=== PATIENT | male | born 1960 | race African-American/Black ===

== ENCOUNTER 2019-02-04 12:32 | Inpatient (IN) | payer MEDICAID ==
[2019-02-04] VITALS (10 sets, daily range): BP systolic 131–176; BP diastolic 73–135
[~2019-02-04] VITALS: Ht 172.7 cm; Wt 78.0 kg
[~2019-02-04 12:32] MED LIST: FUROSEMIDE20 M1 ORAL; GLIPIZIDE10 MG PO; METOPROLOL SUCC25 MG ORAL
[2019-02-04] MEDS ORDERED: Albuterol ud Inhalation HHN ONE ×2 (12:45→14:00)
[2019-02-04] MEDS ORDERED: Ipratropium 0.02% Inh Soln 2.5ml UD HHN ONE (12:45)
[2019-02-04] MEDS ORDERED: Solu-MEDROL 125mg Inj IVP ONE (12:45)
[2019-02-04 13:18] LABS: BASOPHILS % (AUTO) 1.3 % (0.0-2.0); EOSINOPHILS % (AUTO) 1.3 % (0.0-3.0); HEMATOCRIT 36.2 % (42.0-52.0); HEMOGLOBIN 11.7 G/DL (14.2-18.0); LYMPHOCYTES % (AUTO) 28.8 % (20.0-45.0); MEAN CORPUSCULAR VOLUME 87 FL (80-99); MONOCYTES % (AUTO) 7.8 % (1.0-10.0); NEUTROPHILS % (AUTO) 60.9 % (45.0-75.0); PLATELET COUNT 179 K/UL (150-450); RED BLOOD COUNT 4.18 M/UL (4.70-6.10); RED CELL DISTRIBUTION WIDTH 15.4 % (11.6-14.8)
[2019-02-04 13:30] LABS: INR 1.2 (0.9-1.1)
[2019-02-04 13:34] LABS: ANION GAP 11 mmol/L (5-15); BLOOD UREA NITROGEN 7 mg/dL (7-18); CALCIUM 8.7 MG/DL (8.5-10.1); CARBON DIOXIDE 24 MMOL/L (21-32); CHLORIDE 104 MMOL/L (98-107); CREATININE 0.9 MG/DL (0.55-1.30); POTASSIUM 4.6 MMOL/L (3.5-5.1); SODIUM 139 MMOL/L (136-145)
[2019-02-04 13:41] LABS: APPEARANCE,URINE CLEAR; BILIRUBIN, URINE NEGATIVE (NEGATIVE); COLOR,URINE PALE YELLOW; GLUCOSE, URINE (UA) 3+ (NEGATIVE); KETONES,URINE NEGATIVE (NEGATIVE); LEUKOCYTE ESTERASE ,URINE NEGATIVE (NEGATIVE); NITRITE,URINE NEGATIVE (NEGATIVE); PH,URINE 7 (4.5-8.0); PROTEIN,URINE 2+ (NEGATIVE); UROBILINOGEN,URINE NORMAL MG/DL (0.0-1.0)
--- NOTE | 2019-02-04 13:44 | Emergency Room Report ---
History of Present Illness General Chief Complaint: Dyspnea/Respdistress Source: Patient, EMS Present Illness HPI Patient presents with increasing shortness of breath for at least 3 days. He's had a mildly productive cough with some yellow phlegm. Denies any fevers or chills. He was transported by EMS. They performed a 12-lead EKG. They thought there is ST elevation in had a reviewed by Paul felt it was more related to LVH. The patient denies chest pain. Patient was hypoxemic in the field. Oxygen was begun. No breathing treatments were administered. He was quite anxious with the shortness of breath today. He was improved somewhat with transport on oxygen. He does not use home oxygen. Administered 0.8 mg of nitroglycerin with some improvement in the field. The patient has a history of COPD. He stopped smoking within the last month. He is never been intubated. The patient denies a history of congestive heart failure. There is no leg edema or calf tenderness. He denies prior blood clots. No palpitations, nausea, vomiting, diarrhea, dysuria, abdominal pain, depression , visual changes, headache. Allergies: Coded Allergies: No Known Allergies (Unverified , 02/04/19) Patient History Past Medical History: see triage record Social History: Denies: smoking - Stopped smoking last month Social History Narrative lives at home Reviewed Nursing Documentation: PMH: Agreed; PSxH: Agreed Nursing Documentation-PMH Hx Hypertension: Yes Hx Diabetes: Yes Review of Systems All Other Systems: negative except mentioned in HPI Physical Exam Vital Signs Date Time Temp Pulse Resp B/P (MAP) Pulse Ox O2 Delivery O2 Flow Rate FiO2 02/04/19 12:25 98.8 101 20 160/100 94 Nasal Cannula 4.0 02/04/19 13:10 32 Sp02 EP Interpretation: reviewed, abnormal - Interpreted as low by me General Appearance: well appearing, mild distress Head: normocephalic Eyes: bilateral eye normal inspection ENT: moist mucus membranes Neck: supple Respiratory: no retraction, no accessory muscle use, respiratory distress - Mild, wheezing, expiration Cardiovascular #1: regular rate, rhythm, no edema Cardiovascular #2: 2+ radial (R) Gastrointestinal: normal inspection, non tender, soft, decreased bowel sounds Musculoskeletal: back normal, gait/station normal, normal range of motion Neurologic: alert, oriented x3, grossly normal Psychiatric: anxious Skin: normal inspection, warm/dry Procedures Critical Care Time Critical Care Time Total Critical Care Time: 450 min bedside evaluation and treatment excludes procedures (EKG). Reason for critical care: Dyspnea, hypoxia, hypertension, congestive heart failure, bronchospasm, elevated troponin Possible complications: hypotension, hypertension, RI, shock, arrhythmias, metabolic acidosis, end organ damage, respiratory failure. Interventions: Solu-Medrol, breathing treatments, aspirin, metoprolol, nitroglycerin sublingually administered by me, Lasix and repeated evaluations Course: Patient with history of COPD resents with hypoxia and hypertension. Initial breathing treatments with help. Patient worsened after aggressive treatment. He was hypertensive and due to congestive failure on x-ray nitrates , Lasix administered. Positive troponin treated with aspirin, metoprolol. As the patient worsened a repeat EKG was performed. No evidence of STEMI. Unable to perform CT angiogram and the decision was made to give the patient Lovenox. Because the patient had worsened with aggressive treatment and because CT angiogram was unable to be obtained the patient was admitted to intensive care unit. He was improved. Consultations: nursing staff, EMS, admitting MD Performed by: Dr. Kraft Tolerated well condition = critical Medical Decision Making PA Attestation Resp distress @ 13:50. Nitrates and albuterol. Diagnostic Impression: Primary Impression: COPD exacerbation Additional Impressions: Hypoxia Elevated troponin CHF (congestive heart failure) Qualified Codes: I50.41 - Acute combined systolic (congestive) and diastolic ( congestive) heart failure HTN (hypertension) Qualified Codes: I10 - Essential (primary) hypertension ER Course Patient presents with dyspnea with history of COPD with some improvement with oxygen and nitroglycerin administration in the field. Differential includes acute myocardial infarction, COPD exacerbation, congestive heart failure, hypertensive urgency, pulmonary edema, pulmonary embolus amongst others. Presentation is fairly complex. Evaluation with EKG, chest x-ray and labs. Treatment with Solu-Medrol, breathing treatments and IV hydration. EKG without injury but left ventricular hypertrophy. Chest x-ray increased pruitt bilaterally suggesting congestive failure. Labs with normal white count. Elevated troponin called. BNP elevated. Patient had a improvement initially. IV hydration was stopped. 13:50 increased dyspnes. Nitrates and albuterol. Inc O2. Also ordered Lasix. Consideration for pulmonary embolus is entertained. As unable to do CTA, start Lovenox to cover for possible PE. (Will also treat NSTEMI.) Consider V/Q if CTA unavailable. Nitrates helped. EKG #2 - NSR LVH, not STEMI, normal intervals. Still needs monitoring. As was unstable, will increase level of care to ICU. Patient diuresing and somewhat improved. Patient admitted ICU . Laboratory Tests Test 02/04/19 13:09 White Blood Count 5.0 K/UL (4.8-10.8) Red Blood Count 4.18 M/UL (4.70-6.10) L Hemoglobin 11.7 G/DL (14.2-18.0) L Hematocrit 36.2 % (42.0-52.0) L Mean Corpuscular Volume 87 FL (80-99) Mean Corpuscular Hemoglobin 27.9 PG (27.0-31.0) Mean Corpuscular Hemoglobin Concent 32.3 G/DL (32.0-36.0) Red Cell Distribution Width 15.4 % (11.6-14.8) H Platelet Count 179 K/UL (150-450) Mean Platelet Volume 7.4 FL (6.5-10.1) Neutrophils (%) (Auto) 60.9 % (45.0-75.0) Lymphocytes (%) (Auto) 28.8 % (20.0-45.0) Monocytes (%) (Auto) 7.8 % (1.0-10.0) Eosinophils (%) (Auto) 1.3 % (0.0-3.0) Basophils (%) (Auto) 1.3 % (0.0-2.0) Prothrombin Time 12.1 SEC (9.30-11.50) H Prothrombin Time INR 1.2 (0.9-1.1) H PTT 26 SEC (23-33) Urine Color Pale yellow Urine Appearance Clear Urine pH 7 (4.5-8.0) Urine Specific [place] 1.005 (1.005-1.035) Urine Protein 2+ (NEGATIVE) H Urine Glucose (UA) 3+ (NEGATIVE) H Urine Ketones Negative (NEGATIVE) Urine Blood Negative (NEGATIVE) Urine Nitrite Negative (NEGATIVE) Urine Bilirubin Negative (NEGATIVE) Urine Urobilinogen Normal MG/DL (0.0-1.0) Urine Leukocyte Esterase Negative (NEGATIVE) Urine RBC 2-4 /HPF (0 - 0) H Urine WBC 0 /HPF (0 - 0) Urine Squamous Epithelial Cells Occasional /LPF Urine Bacteria None /HPF (NONE) Sodium Level 139 MMOL/L (136-145) Potassium Level 4.6 MMOL/L (3.5-5.1) Chloride Level 104 MMOL/L (98-107) Carbon Dioxide Level 24 MMOL/L (21-32) Anion Gap 11 mmol/L (5-15) Blood Urea Nitrogen 7 mg/dL (7-18) Creatinine 0.9 MG/DL (0.55-1.30) Estimate Glomerular Filtration Rate > 60 mL/min (>60) Glucose Level 226 MG/DL (74-106) H Calcium Level 8.7 MG/DL (8.5-10.1) Total Bilirubin 0.7 MG/DL (0.2-1.0) Aspartate Amino Transferase (AST) 31 U/L (15-37) Alanine Aminotransferase (ALT) 23 U/L (12-78) Alkaline Phosphatase 76 U/L (46-116) Total Creatine Kinase 234 U/L (26-308) Troponin I 0.074 ng/mL (0.000-0.056) Pro-B-Type Natriuretic Peptide 2585 pg/mL (0-125) H Total Protein 7.0 G/DL (6.4-8.2) Albumin 3.1 G/DL (3.4-5.0) L Globulin 3.9 g/dL Albumin/Globulin Ratio 0.8 (1.0-2.7) L EKG Diagnostic Results Rate: normal Rhythm: NSR ST Segments: no acute changes - LVH Rhythm Strip Diag. Results EP Interpretation: yes Rhythm: NSR, no PVC's, no ectopy Chest X-Ray Diagnostic Results Chest X-Ray Diagnostic Results : Chest X-Ray Ordered: Yes # of Views/Limited/Complete: 1 View Indication: Shortness of Breath EP Interpretation: Yes Interpretation: no effusion, no pneumothorax, other - CHF Impression: Other Electronically Signed by: Electronically signed by Suresh Kraft MD Last Vital Signs Date Time Temp Pulse Resp B/P (MAP) Pulse Ox O2 Delivery O2 Flow Rate FiO2 02/04/19 21:00 110 23 135/77 (96) 95 02/04/19 20:00 98.5 02/04/19 20:00 Room Air 2.0 Nasal Cannula 2.0 4/10/19 19:31 28 Status: improved Disposition: ADMITTED INPATIENT Condition: Critical Suresh Kraft MD Feb 04, 2019 13:44
[2019-02-04] MEDS ORDERED: Metoprolol 5mg/5ml Inj IVP SCH (13:45)
[2019-02-04 13:47] LABS: ALANINE AMINOTRANSFERASE 23 U/L (12-78); ALBUMIN 3.1 G/DL (3.4-5.0); ALBUMIN/GLOBULIN RATIO 0.8 (1.0-2.7); ALKALINE PHOSPHATASE 76 U/L (46-116); ASPARTATE AMINO TRANSFERASE 31 U/L (15-37); BILIRUBIN,TOTAL 0.7 MG/DL (0.2-1.0); CREATINE KINASE 234 U/L (26-308)
[2019-02-04] MEDS ORDERED: Nitroglycerin Subl 0.4mg tab SL STA (13:56)
[2019-02-04] MEDS ORDERED: Enoxaparin 120 mg inj SUBQ STA (14:08)
--- NOTE | 2019-02-04 14:35 | Diagnostic Imaging Report ---
Indication: Dyspnea Technique: One view of the chest Comparison: none Findings: Heart is enlarged. There is mild overlies interstitial congestion. There is probably some pleural fluid on the right. Impression: Cardiomegaly Interstitial edema and probable right pleural effusion
[2019-02-04] MEDS ORDERED: METFORMIN HCL1000 M1 ORAL (14:40)
[2019-02-04] MEDS: Nitroglycerin 2% oint pkt TOPIC SCH (18:07)
[2019-02-04] MEDS: NovoLOG Insulin Flexpen SUBQ SCH (20:47)
[2019-02-04] MEDS: Heparin 5000 units/ml inj SUBQ SCH (20:47)
[2019-02-04] MEDS ORDERED: Nitroglycerin 2% oint pkt TOPIC SCH (22:00)
[2019-02-05] VITALS (24 sets, daily range): BP systolic 109–181; BP diastolic 69–119
[2019-02-05] MEDS: Metoprolol 25mg tab ORAL SCH ×3 (01:54→21:21)
[2019-02-05] MEDS ORDERED: NovoLOG Insulin Flexpen SUBQ SCH (06:30)
[2019-02-05] MEDS: NovoLOG Insulin Flexpen SUBQ SCH ×4 (06:32→21:23)
[2019-02-05] MEDS: Heparin 5000 units/ml inj SUBQ SCH ×2 (08:18→21:22)
[2019-02-05] MEDS: Nitroglycerin 2% oint pkt TOPIC SCH ×2 (08:19→16:46)
[2019-02-05 08:32] LABS: HEMATOCRIT 35.5 % (42.0-52.0); HEMOGLOBIN 11.5 G/DL (14.2-18.0); MEAN CORPUSCULAR VOLUME 87 FL (80-99); PLATELET COUNT 168 K/UL (150-450); RED BLOOD COUNT 4.09 M/UL (4.70-6.10); RED CELL DISTRIBUTION WIDTH 15.1 % (11.6-14.8); WHITE BLOOD COUNT 8.3 K/UL (4.8-10.8)
[2019-02-05] MEDS ORDERED: Metoprolol Succinate XL 25mg tab ORAL SCH (09:00)
[2019-02-05] MEDS ORDERED: metFORMIN 500mg tab ORAL SCH (09:00)
[2019-02-05 09:28] LABS: ALANINE AMINOTRANSFERASE 23 U/L (12-78); ALBUMIN/GLOBULIN RATIO 0.8 (1.0-2.7); ALKALINE PHOSPHATASE 71 U/L (46-116); ANION GAP 10 mmol/L (5-15); ASPARTATE AMINO TRANSFERASE 22 U/L (15-37); BILIRUBIN,TOTAL 0.5 MG/DL (0.2-1.0); BLOOD UREA NITROGEN 16 mg/dL (7-18); CALCIUM 8.8 MG/DL (8.5-10.1); CARBON DIOXIDE 25 MMOL/L (21-32); CHLORIDE 101 MMOL/L (98-107); CHOLESTEROL 146 MG/DL (< 200); CREATININE 1.1 MG/DL (0.55-1.30); HDL CHOLESTEROL 56 MG/DL (40-60); POTASSIUM 3.8 MMOL/L (3.5-5.1); SODIUM 136 MMOL/L (136-145); TRIGLYCERIDES 78 MG/DL (30-150)
[2019-02-05] MEDS: ALPRAZolam 0.5mg tab ORAL PRN ×2 (11:30→22:52)
--- NOTE | 2019-02-05 16:15 | History and Physical Report ---
DATE OF ADMISSION: 02/04/2019 REASON FOR ADMISSION: Possible non-STEMI. HISTORY OF PRESENT ILLNESS: This is a 58-year-old male who was admitted through the emergency room with elevated troponin. The patient was seen by Cardiology. The patient noted increasing shortness of breath. The patient also with elevated blood pressure. The patient was not felt to require transfer for acute angiogram. The patient does have history of COPD, stopped smoking approximately 1 month ago. Denies any history of CHF. The patient is seen and evaluated in the emergency room and admitted. The patient seen by Cardiology as mentioned. Orders given. The patient is admitted to ICU. PAST MEDICAL HISTORY: Notable for COPD. No clear history of CAD, history of hypertension, history of diabetes. MEDICATIONS: Reviewed. ALLERGIES: Reviewed. SOCIAL HISTORY: Lives at home. Has longstanding history of smoking and disabled at present. PHYSICAL EXAMINATION: GENERAL: A well-developed male, comfortable at present. VITAL SIGNS: Blood pressure 135/84, pulse 104, saturations 95%, respiratory rate 27. HEENT: Negative. NECK: Supple. LUNGS: With moderate breath sounds. CARDIAC: S1 and S2. Regular rate and rhythm. ABDOMEN: Soft and nontender. EXTREMITIES: No edema. NEUROLOGIC: Grossly nonfocal. LABORATORY DATA: Reviewed with troponins trending downward. BNP 2585. Blood sugar is 226. Hemoglobin 11.5. EKG noted and reviewed. IMPRESSION: Possible acute non-STEMI, diabetes, hypertension, questionable COPD. RECOMMENDATION: Serial troponins noted. Cardiology followup and recommendations and clearance. Resume home medications. Nitrates as needed. Blood pressure support as needed. Echocardiogram await final review and disposition as per Cardiology. Quan Huynh M.D. DR: JULIO JOB#: [id number] CC:
[2019-02-05] MEDS ORDERED: Zolpidem 5mg tab ORAL PRN (20:00)
[2019-02-05] MEDS ORDERED: Lisinopril 20mg tab ORAL SCH (22:45)
[2019-02-06] VITALS (7 sets, daily range): BP systolic 130–154; BP diastolic 83–104
[2019-02-06] MEDS ORDERED: ALPRAZolam 0.5mg tab ORAL PRN (03:30)
[2019-02-06 05:02] LABS: BASOPHILS % (AUTO) 0.8 % (0.0-2.0); EOSINOPHILS % (AUTO) 0.7 % (0.0-3.0); HEMATOCRIT 33.8 % (42.0-52.0); LYMPHOCYTES % (AUTO) 31.4 % (20.0-45.0); MEAN CORPUSCULAR VOLUME 87 FL (80-99); MONOCYTES % (AUTO) 5.4 % (1.0-10.0); NEUTROPHILS % (AUTO) 61.6 % (45.0-75.0); PLATELET COUNT 155 K/UL (150-450); RED BLOOD COUNT 3.88 M/UL (4.70-6.10); RED CELL DISTRIBUTION WIDTH 15.4 % (11.6-14.8); WHITE BLOOD COUNT 8.9 K/UL (4.8-10.8)
[2019-02-06 05:49] LABS: ALANINE AMINOTRANSFERASE 23 U/L (12-78); ALBUMIN 2.7 G/DL (3.4-5.0); ALBUMIN/GLOBULIN RATIO 0.8 (1.0-2.7); ALKALINE PHOSPHATASE 70 U/L (46-116); ANION GAP 11 mmol/L (5-15); ASPARTATE AMINO TRANSFERASE 21 U/L (15-37); BILIRUBIN,TOTAL 0.4 MG/DL (0.2-1.0); BLOOD UREA NITROGEN 18 mg/dL (7-18); CARBON DIOXIDE 24 MMOL/L (21-32); CHLORIDE 104 MMOL/L (98-107); POTASSIUM 3.7 MMOL/L (3.5-5.1); SODIUM 139 MMOL/L (136-145)
[2019-02-06] MEDS: NovoLOG Insulin Flexpen SUBQ SCH ×4 (06:02→21:29)
[2019-02-06] MEDS ORDERED: Nitroglycerin 2% oint pkt TOPIC SCH (09:00)
[2019-02-06] MEDS ORDERED: metFORMIN 500mg tab ORAL SCH (09:00)
[2019-02-06] MEDS ORDERED: Lisinopril 20mg tab ORAL SCH (09:00)
[2019-02-06] MEDS ORDERED: Metoprolol 25mg tab ORAL SCH (09:00)
[2019-02-06] MEDS ORDERED: Heparin 5000 units/ml inj SUBQ SCH (09:00)
[2019-02-06] MEDS ORDERED: Albuterol ud Inhalation HHN PRN ×2 (10:45→15:00)
--- NOTE | 2019-02-06 11:03 | Pulmonology Progress Note ---
Assessment/Plan Assessment/Plan Pulmonary Progress Note: HPI: Patient is a 58-year-old male who was admitted with CHF and elevated troponin. Cardiology following. The patient noted increasing shortness of breath. The patient also with elevated blood pressure. The patient was not felt to require transfer for acute angiogram. The patient does have history of COPD, stopped smoking approximately 1 month ago. Denies any history of CHF. The patient is seen and evaluated in the emergency room and admitted. The patient seen by Cardiology as mentioned. Orders given. The patient is admitted to ICU. PAST MEDICAL HISTORY: Notable for COPD. No clear history of CAD, history of hypertension, history of diabetes. MEDICATIONS: Reviewed. ALLERGIES: Reviewed. SOCIAL HISTORY: Lives at home. Has longstanding history of smoking and disabled at present. PHYSICAL EXAMINATION: GENERAL: A well-developed male, comfortable at present. VITAL SIGNS NOTED. HEENT: Negative. NECK: Supple. LUNGS: With moderate breath sounds. CARDIAC: S1 and S2. Regular rate and rhythm. ABDOMEN: Soft and nontender. EXTREMITIES: No edema. NEUROLOGIC: Grossly nonfocal. LABORATORY DATA: Reviewed with troponins trending downward. BNP 2585. Blood sugar is 226. Hemoglobin 11.5. EKG noted and reviewed. IMPRESSION: Possible acute non-STEMI, CHF, diabetes, hypertension, questionable COPD. RECOMMENDATION: Follow labs. Cardiology following. Resume home medications. Nitrates as needed. Blood pressure support as needed. Echocardiogram await final review and disposition as per Cardiology. Subjective ROS Limited/Unobtainable: No Allergies: Coded Allergies: No Known Allergies (Unverified , 02/04/19) Objective Last 24 Hour Vital Signs Date Time Temp Pulse Resp B/P (MAP) Pulse Ox O2 Delivery O2 Flow Rate FiO2 02/06/19 10:53 Nasal Cannula 2.0 28 02/06/19 10:53 97 Nasal Cannula 2.0 28 02/06/19 10:53 88 28 97 Venturi Mask 4.0 30 02/06/19 10:21 87 130/85 02/06/19 10:21 130/85 02/06/19 10:20 130/85 02/06/19 08:00 89 02/06/19 04:00 Room Air 2.0 Nasal Cannula 2.0 02/06/19 04:00 98.0 87 20 145/83 (103) 94 02/06/19 04:00 89 02/06/19 01:50 98 Nasal Cannula 2.0 28 02/06/19 01:50 Nasal Cannula 2.0 28 02/06/19 01:00 91 22 142/88 (106) 97 02/06/19 00:00 Room Air 2.0 Nasal Cannula 2.0 02/06/19 00:00 98.1 90 22 135/92 (106) 97 02/06/19 00:00 99 02/05/19 23:00 97 22 146/105 (119) 97 02/05/19 22:44 151/93 02/05/19 22:00 97 22 149/100 (116) 97 02/05/19 21:21 93 133/88 02/05/19 21:00 93 22 133/85 (101) 97 02/05/19 20:00 Room Air 2.0 Nasal Cannula 2.0 02/05/19 20:00 98.0 95 22 131/112 (118) 97 02/05/19 20:00 95 02/05/19 19:00 97 17 134/86 (102) 96 02/05/19 18:00 96 16 125/71 (89) 96 02/05/19 17:00 96 17 109/84 (92) 94 02/05/19 16:46 109/84 02/05/19 16:00 101 02/05/19 16:00 Room Air 2.0 Nasal Cannula 2.0 02/05/19 16:00 97.9 96 22 127/77 (94) 94 02/05/19 15:00 94 18 139/86 (103) 95 02/05/19 15:00 92 17 139/86 (103) 96 02/05/19 14:00 95 18 167/112 (130) 91 02/05/19 13:00 108 26 155/94 (114) 96 02/05/19 12:00 Room Air 2.0 Nasal Cannula 2.0 02/05/19 12:00 93 02/05/19 12:00 98.0 101 25 159/110 (126) 98 Intake and Output 02/05/19 02/06/19 19:00 07:00 Intake Total 900 ml Output Total 1350 ml 1000 ml Balance -450 ml -1000 ml Intake Oral 900 ml Output Urine Total 1350 ml 1000 ml Microbiology Date/Time Source Procedure Growth Status 02/04/19 17:00 Nasal Nares MRSA Culture - Final NO METHICILLIN RESISTANT STAPH AUREUS... Complete 02/04/19 17:00 Rectum VRE Culture - Final NO VANCOMYCIN RESISTANT ENTEROCOCCUS ... Complete 02/04/19 17:00 Rectum - Final NO CARBAPENEM-RESISTANT ENTEROBACTERI... Complete Laboratory Tests 02/05/19 15:53: Troponin I 0.063H 02/06/19 04:30: White Blood Count 8.9, Red Blood Count 3.88L, Hemoglobin 11.0L, Hematocrit 33.8L , Mean Corpuscular Volume 87, Mean Corpuscular Hemoglobin 28.4, Mean Corpuscular Hemoglobin Concent 32.6, Red Cell Distribution Width 15.4H, Platelet Count 155, Mean Platelet Volume 8.1, Neutrophils (%) (Auto) 61.6, Lymphocytes (%) (Auto) 31.4, Monocytes (%) (Auto) 5.4, Eosinophils (%) (Auto) 0.7, Basophils (%) (Auto) 0.8, Sodium Level 139, Potassium Level 3.7, Chloride Level 104, Carbon Dioxide Level 24, Anion Gap 11, Blood Urea Nitrogen 18, Creatinine 1.0, Estimat Glomerular Filtration Rate > 60, Glucose Level 247H, Calcium Level 9.0, Magnesium Level 0.8*L, Total Bilirubin 0.4, Aspartate Amino Transf (AST/SGOT) 21, Alanine Aminotransferase (ALT/SGPT) 23, Alkaline Phosphatase 70, Pro-B-Type Natriuretic Peptide 2758H, Total Protein 6.1L, Albumin 2.7L, Globulin 3.4, Albumin/Globulin Ratio 0.8L Current Medications Medications (Trade) Dose Ordered Sig/Celso Route PRN Reason Start Time Stop Time Status Last Admin Dose Admin Acetaminophen (Tylenol) 650 mg Q4H PRN ORAL Mild Pain/Temp > 100.5 02/06/19 05:00 03/06/19 16:59 Albuterol Sulfate (Proventil) 2.5 mg Q4H PRN HHN Shortness of Breath 02/06/19 10:45 02/11/19 10:44 02/06/19 10:53 Alprazolam (Xanax) 0.5 mg Q4H PRN ORAL For Anxiety 02/06/19 03:30 02/12/19 11:29 Clonidine HCl (Catapres Tab) 0.1 mg Q4H PRN ORAL sbp >160 02/06/19 02:30 03/07/19 10:29 Dextrose (Dextrose 50%) 25 ml Q30M PRN IV Hypoglycemia 02/06/19 02:15 03/06/19 17:14 Dextrose (Dextrose 50%) 50 ml Q30M PRN IV Hypoglycemia 02/06/19 02:15 03/06/19 17:14 Furosemide (Lasix) 40 mg DAILY IV 02/06/19 09:00 03/07/19 08:59 02/06/19 10:19 Heparin Sodium (Porcine) (Heparin 5000 units/ml) 5,000 units EVERY 12 HOURS SUBQ 02/06/19 09:00 03/06/19 20:59 02/06/19 10:46 Insulin Aspart (NovoLOG) BEFORE MEALS AND HS SUBQ 02/06/19 06:30 03/06/19 20:59 02/06/19 06:02 Lisinopril (Prinivil) 20 mg BID ORAL 02/06/19 09:00 03/07/19 22:44 02/06/19 10:21 Magnesium Sulfate 100 ml @ 100 mls/hr Q1H IVPB 02/06/19 09:30 02/06/19 11:29 02/06/19 10:19 Metformin HCl (Glucophage) 1,000 mg DAILY ORAL 02/06/19 09:00 03/07/19 08:59 02/06/19 10:19 Metoprolol Tartrate (Lopressor) 25 mg Q12HR ORAL 02/06/19 09:00 03/07/19 01:29 02/06/19 10:21 Nitroglycerin (Nitro-Bid) 1 inch BID TOPIC 02/06/19 09:00 03/06/19 21:59 02/06/19 10:20 Zolpidem Tartrate (Ambien) 5 mg HSPRN PRN ORAL Insomnia 02/06/19 20:00 02/12/19 19:59 Suresh Arana MD Feb 06, 2019 11:02
--- NOTE | 2019-02-06 11:35 | Diagnostic Imaging Report ---
Indication: Shortness of breath Technique: One view of the chest Comparison: February 04, 2019 Findings: There is bilateral interstitial edema and some right basilar airspace disease, appearing unchanged since previous exam. Right-sided pleural effusion is probably unchanged. The heart is enlarged Impression: Unchanged, over 2 days, findings as above.
[2019-02-06] MEDS ORDERED: NovoLOG Insulin Flexpen SUBQ SCH ×2 (12:30→16:30)
[2019-02-06] MEDS ORDERED: Spironolactone 25mg tab ORAL SCH ×2 (14:19→14:45)
[2019-02-06] MEDS: Lisinopril 20mg tab ORAL SCH (17:43)
[2019-02-06] MEDS: Nitroglycerin 2% oint pkt TOPIC SCH (17:43)
[2019-02-06] MEDS ORDERED: Zolpidem 5mg tab ORAL PRN (20:00)
--- NOTE | 2019-02-06 21:00 | Progress Note ---
DATE: 02/05/2019 CARDIOLOGY PROGRESS NOTE Late entry for 02/05/2019. SUBJECTIVE: The patient was seen and evaluated in the intensive care unit. He still has shortness of breath and episodes of congestion. Monitored rhythm, sinus with frequent atrial ectopy and an occasional premature ventricular contractions. Echocardiogram has been notable for moderately decreased ejection fraction of less than 30% with mild valvular regurgitation. OBJECTIVE: VITAL SIGNS: Blood pressure 149/100, pulse 97, and respirations 22. Afebrile. NECK: Elevated jugular venous pressure. LUNGS: Bilateral rales. HEART: Regular rhythm and rate. Normal S1, S2. A 2/6 systolic apical murmur. ABDOMEN: Soft. EXTREMITIES: Trace edema. LABORATORY DATA: Sodium 136, potassium 3.8, bicarb 25, BUN 16, and creatinine 1.1. Glucose 335. Pro-natriuretic peptide is 4343. Troponin 0.063. IMPRESSION: 1. Acute on chronic systolic and diastolic congestive heart failure. 2. Hypertensive heart disease with uncontrolled blood pressure. 3. Paroxysmal atrial ectopy. 4. Chronic obstructive pulmonary disease with exacerbation and paroxysmal bronchospasm. 5. Mild protein-calorie malnutrition. 6. Acute myocardial ischemia. 7. Type 2 diabetes mellitus with poor glucose control. PLAN: 1. Advance beta clemente. 2. Add angiotensin-converting enzyme inhibitor. 3. Continue diuresis. 4. Monitor electrolytes including magnesium level. 5. Diabetic regimen primary care physician. 6. Serial troponin levels. 7. The patient is high risk. Suresh Petty M.D. DR: MAKAYLA JOB#: [id number] CC:
--- NOTE | 2019-02-06 21:30 | Progress Note ---
DATE: 02/06/2019 SUBJECTIVE: The patient has episodes of congestion still, but improved. Diuresis is adequate. Blood pressure is better. He still has shortness of breath with any activity. OBJECTIVE: VITAL SIGNS: Blood pressure 130/85, pulse 87, and respirations 28. LUNGS: Coarse breath sounds. Scattered rhonchi. Basilar rales. HEART: Regular rhythm and rate. Normal S1. A 1/6 systolic murmur at apex. Normal S2. ABDOMEN: Soft. EXTREMITIES: Trace edema. DIAGNOSTIC DATA: Chest x-ray today reveals bilateral interstitial edema persisting and a right pleural effusion. LABORATORY DATA: Labs notable for magnesium of 0.8. Pro-natriuretic peptide 2758. BUN 18 and creatinine 1. White count 9 and hemoglobin 11. IMPRESSION: 1. Acute on chronic systolic and diastolic congestive heart failure. 2. Paroxysmal atrial ectopy. 3. Dilated cardiomyopathy. 4. Severe hypomagnesemia. PLAN: 1. Continue diuresis. 2. Replace potassium and magnesium. 3. Add Aldactone. 4. Maximize anti-failure and antianginal regimen including CHANO inhibitor and beta-clemente. 5. skilled nursing, we will need to evaluate for coronary ischemia and consider cardiac defibrillator for primary prevention if no improvement in clinical parameters ensued with therapy. Suresh Petty M.D. DR: MAKAYLA JOB#: [id number] CC:
[2019-02-06] MEDS: Heparin 5000 units/ml inj SUBQ SCH (21:31)
[2019-02-06] MEDS: Metoprolol 25mg tab ORAL SCH (21:32)
[2019-02-06] MEDS: ALPRAZolam 0.5mg tab ORAL PRN (21:32)
--- NOTE | 2019-02-06 22:45 | Consultation ---
DATE OF CONSULTATION: 02/04/2019 CARDIOLOGY CONSULTATION CONSULTING PHYSICIAN: Suresh Petty M.D. REQUESTING PHYSICIAN: Quan Huynh M.D. REASON FOR CONSULTATION: Congestive heart failure. HISTORY OF PRESENT ILLNESS: This male, age 58, presented to the emergency room with several days of progressive cough, congestion, and shortness of breath. No fevers or chills were noted. No chest pain was described. No leg swelling noted. The patient has had a hypoxia however and was started on oxygen in the field. PAST MEDICAL HISTORY: 1. Chronic obstructive pulmonary disease. 2. Type 2 diabetes mellitus. 3. Hypertension. MEDICATIONS: Prior to admission, reviewed and reconciled. SOCIAL HISTORY: Quit smoking about a month ago. Has a 40 pack year smoking history I believe. No alcohol or substance abuse. FAMILY HISTORY: Noncontributory. REVIEW OF SYSTEMS: A 10-point review of systems performed. All systems negative other than noted above. PHYSICAL EXAMINATION: VITAL SIGNS: Afebrile, blood pressure 160/100, pulse 101, respirations 20, and oxygen saturation on 4 liters is only 94%. HEENT: Normocephalic and atraumatic. Conjunctivae pink. Oropharynx clear. NECK: Supple. Jugular venous pressure grossly elevated. There is some accessory muscle use. LUNGS: Expiratory wheezes. Rhonchi and rales. CARDIAC: Regular rhythm and rate. Normal S1, S2. A 1/6 systolic murmur at apex with frequent ectopic beats. ABDOMEN: Soft and nontender. No guarding or rebound. EXTREMITIES: Without clubbing or cyanosis. There is trace edema. LABORATORY AND DIAGNOSTIC DATA: EKG with sinus rhythm, left ventricular hypertrophy, repolarization changes. Chest x-ray, pulmonary edema and small right effusion. White count 5 and hemoglobin 11.7. Potassium 4.6, BUN 7, and creatinine 0.9. Troponin 0.074 and pro-natriuretic peptide 2500. IMPRESSION: 1. Acute on chronic congestive heart failure. 2. Acute myocardial ischemia. 3. Hypertensive heart disease with malignant blood pressure. 4. Type 2 diabetes mellitus with hyperglycemia. 5. Chronic obstructive pulmonary disease with acute bronchospasm. PLAN: 1. Cardiac monitoring. 2. Intravenous diuretic therapy. 3. Beta-blockade. 4. Optimize antihypertensive regimen. 5. Anti-platelet therapy. 6. DVT prophylaxis. 7. Bronchodilators and respiratory hygiene. 8. Echocardiogram. 9. Follow-up and replace electrolytes based on clinical parameters. 10. Plan of care will be reviewed and adjusted based on further diagnostic studies and clinical course. Suresh Petty M.D. DR: MAKAYLA JOB#: [id number] CC:
[2019-02-07] VITALS: BP 152/104
[2019-02-07] MEDS: Zolpidem 5mg tab ORAL PRN (01:26)
[2019-02-07 04:10] VITALS: BP 135/83
[2019-02-07] MEDS: NovoLOG Insulin Flexpen SUBQ SCH ×4 (06:34→20:29)
[2019-02-07 08:00] VITALS: BP 149/103
[2019-02-07] MEDS: Spironolactone 25mg tab ORAL SCH (08:14)
[2019-02-07] MEDS: Metoprolol 25mg tab ORAL SCH ×2 (08:14→20:29)
[2019-02-07] MEDS: metFORMIN 500mg tab ORAL SCH (08:14)
[2019-02-07] MEDS: Lisinopril 20mg tab ORAL SCH ×2 (08:15→17:46)
[2019-02-07] MEDS: Nitroglycerin 2% oint pkt TOPIC SCH ×2 (08:16→17:46)
[2019-02-07] MEDS: Heparin 5000 units/ml inj SUBQ SCH ×2 (08:17→20:28)
[2019-02-07] MEDS: ALPRAZolam 0.5mg tab ORAL PRN ×2 (08:29→20:31)
[2019-02-07] MEDS ORDERED: Spironolactone 25mg tab ORAL SCH (09:00)
[2019-02-07 12:00] VITALS: BP 151/99
[2019-02-07 16:00] VITALS: BP 150/95
--- NOTE | 2019-02-07 17:34 | Pulmonology Progress Note ---
Assessment/Plan Assessment/Plan Pulmonary Progress Note: HPI: Patient is a 58-year-old male who was admitted with CHF and elevated troponin. Cardiology following. The patient noted increasing shortness of breath. The patient also with elevated blood pressure. The patient was not felt to require transfer for acute angiogram. The patient does have history of COPD, stopped smoking approximately 1 month ago. Denies any history of CHF. The patient is seen and evaluated in the emergency room and admitted. The patient seen by Cardiology as mentioned. Orders given. The patient is admitted to ICU. PAST MEDICAL HISTORY: Notable for COPD. No clear history of CAD, history of hypertension, history of diabetes. MEDICATIONS: Reviewed. ALLERGIES: Reviewed. SOCIAL HISTORY: Lives at home. Has longstanding history of smoking and disabled at present. PHYSICAL EXAMINATION: GENERAL: A well-developed male, comfortable at present. VITAL SIGNS NOTED. HEENT: Negative. NECK: Supple. LUNGS: With moderate breath sounds. CARDIAC: S1 and S2. Regular rate and rhythm. ABDOMEN: Soft and nontender. EXTREMITIES: No edema. NEUROLOGIC: Grossly nonfocal. LABORATORY DATA: Reviewed with troponins trending downward. BNP 2585. Blood sugar is 226. Hemoglobin 11.5. EKG noted and reviewed. IMPRESSION: Possible acute non-STEMI, CHF, diabetes, hypertension, questionable COPD. RECOMMENDATION: Follow labs. Cardiology following. Resume home medications. Nitrates as needed. Blood pressure support as needed. Echocardiogram await final review and disposition as per Cardiology. Subjective ROS Limited/Unobtainable: No Allergies: Coded Allergies: No Known Allergies (Unverified , 02/04/19) Objective Last 24 Hour Vital Signs Date Time Temp Pulse Resp B/P (MAP) Pulse Ox O2 Delivery O2 Flow Rate FiO2 02/07/19 12:00 97.9 88 20 151/99 (116) 98 02/07/19 09:00 Nasal Cannula 2.0 Nasal Cannula 2.0 02/07/19 08:16 149/103 02/07/19 08:15 149/103 02/07/19 08:14 79 149/103 02/07/19 08:00 97.9 79 18 149/103 (118) 98 02/07/19 06:49 Nasal Cannula 2.0 28 02/07/19 06:49 96 Nasal Cannula 2.0 28 02/07/19 04:10 97.9 83 18 135/83 (100) 93 02/07/19 00:00 98.4 86 18 152/104 (120) 95 02/06/19 21:32 87 150/104 02/06/19 21:00 Nasal Cannula 2.0 Nasal Cannula 2.0 02/06/19 20:00 98.5 87 18 150/104 (119) 97 02/06/19 19:44 Nasal Cannula 2.0 28 02/06/19 19:44 97 Nasal Cannula 2.0 28 02/06/19 17:43 154/96 02/06/19 17:43 154/96 Intake and Output 02/06/19 02/07/19 19:00 07:00 Output Total 1850 ml 900 ml Balance -1850 ml -900 ml Output Urine Total 1850 ml 900 ml Current Medications Medications (Trade) Dose Ordered Sig/Celso Route PRN Reason Start Time Stop Time Status Last Admin Dose Admin Acetaminophen (Tylenol) 650 mg Q4H PRN ORAL Mild Pain/Temp > 100.5 02/06/19 15:00 03/06/19 14:59 Albuterol Sulfate (Proventil) 2.5 mg Q4H PRN HHN Shortness of Breath 02/06/19 15:00 02/11/19 14:59 Alprazolam (Xanax) 0.5 mg Q4H PRN ORAL For Anxiety 02/06/19 15:30 02/12/19 11:29 02/07/19 08:29 Clonidine HCl (Catapres Tab) 0.1 mg Q4H PRN ORAL sbp >160 02/06/19 15:00 03/07/19 14:59 Dextrose (Dextrose 50%) 25 ml Q30M PRN IV Hypoglycemia 02/06/19 15:15 03/06/19 17:14 Dextrose (Dextrose 50%) 50 ml Q30M PRN IV Hypoglycemia 02/06/19 15:15 03/06/19 17:14 Furosemide (Lasix) 40 mg DAILY IV 02/07/19 09:00 03/07/19 08:59 02/07/19 08:16 Heparin Sodium (Porcine) (Heparin 5000 units/ml) 5,000 units EVERY 12 HOURS SUBQ 02/06/19 21:00 03/06/19 20:59 02/07/19 08:17 Insulin Aspart (NovoLOG) BEFORE MEALS AND HS SUBQ 02/06/19 16:30 03/08/19 12:29 02/07/19 16:42 Lisinopril (Prinivil) 20 mg BID ORAL 02/06/19 18:00 03/07/19 22:44 02/07/19 08:15 Magnesium Sulfate 100 ml @ 100 mls/hr Q1H IVPB 02/07/19 16:00 02/07/19 17:59 02/07/19 16:21 Metformin HCl (Glucophage) 1,000 mg DAILY ORAL 02/07/19 09:00 03/07/19 08:59 02/07/19 08:14 Metoprolol Tartrate (Lopressor) 25 mg Q12HR ORAL 02/06/19 21:00 03/07/19 01:29 02/07/19 08:14 Nitroglycerin (Nitro-Bid) 1 inch BID TOPIC 02/06/19 18:00 03/06/19 21:59 02/07/19 08:16 Spironolactone (Aldactone) 25 mg DAILY ORAL 02/07/19 09:00 03/09/19 08:59 02/07/19 08:14 Zolpidem Tartrate (Ambien) 5 mg HSPRN PRN ORAL Insomnia 02/06/19 20:00 02/12/19 19:59 02/07/19 01:26 Suresh Arana MD Feb 07, 2019 17:34
[2019-02-07 20:06] VITALS: BP 161/110
[2019-02-08] VITALS: BP 133/90
[2019-02-08 04:00] VITALS: BP 142/94
[2019-02-08] MEDS: NovoLOG Insulin Flexpen SUBQ SCH ×4 (05:40→20:33)
[2019-02-08 08:00] VITALS: BP 153/96
[2019-02-08] MEDS: Spironolactone 25mg tab ORAL SCH (09:10)
[2019-02-08] MEDS: Metoprolol 25mg tab ORAL SCH ×2 (09:11→20:31)
[2019-02-08] MEDS: metFORMIN 500mg tab ORAL SCH (09:11)
[2019-02-08] MEDS: Lisinopril 20mg tab ORAL SCH ×2 (09:11→17:42)
[2019-02-08] MEDS: Nitroglycerin 2% oint pkt TOPIC SCH ×2 (09:12→17:42)
[2019-02-08] MEDS: Heparin 5000 units/ml inj SUBQ SCH ×2 (09:12→20:31)
[2019-02-08 12:00] VITALS: BP 148/91
[2019-02-08 16:00] VITALS: BP 157/98
--- NOTE | 2019-02-08 18:40 | Pulmonology Progress Note ---
Assessment/Plan Assessment/Plan Pulmonary Progress Note: HPI: Patient is a 58-year-old male who was admitted with CHF and elevated troponin. Cardiology following. The patient noted increasing shortness of breath. The patient also with elevated blood pressure. The patient was not felt to require transfer for acute angiogram. The patient does have history of COPD, stopped smoking approximately 1 month ago. Denies any history of CHF. The patient is seen and evaluated in the emergency room and admitted. The patient seen by Cardiology, no new complaints PAST MEDICAL HISTORY: Notable for COPD. No clear history of CAD, history of hypertension, history of diabetes. MEDICATIONS: Reviewed. ALLERGIES: Reviewed. SOCIAL HISTORY: Lives at home. Has longstanding history of smoking and disabled at present. PHYSICAL EXAMINATION: GENERAL: A well-developed male, comfortable at present. VITAL SIGNS NOTED. HEENT: Negative. NECK: Supple. LUNGS: With moderate breath sounds. CARDIAC: S1 and S2. Regular rate and rhythm. ABDOMEN: Soft and nontender. EXTREMITIES: No edema. NEUROLOGIC: Grossly nonfocal. LABORATORY DATA: Reviewed with troponins trending downward. BNP 2585. Blood sugar is 226. Hemoglobin 11.5. EKG noted and reviewed. IMPRESSION: 1. Acute on chronic congestive heart failure. 2. Acute myocardial ischemia. 3. Hypertensive heart disease with malignant blood pressure. 4. Type 2 diabetes mellitus with hyperglycemia. 5. Chronic obstructive pulmonary disease with acute bronchospasm. RECOMMENDATION: Follow labs. Cardiology following. Resume home medications. Nitrates as needed. Blood pressure support as needed. Echocardiogram await final review and disposition as per Cardiology. Subjective ROS Limited/Unobtainable: No Allergies: Coded Allergies: No Known Allergies (Unverified , 02/04/19) Objective Last 24 Hour Vital Signs Date Time Temp Pulse Resp B/P (MAP) Pulse Ox O2 Delivery O2 Flow Rate FiO2 02/08/19 17:42 157/98 02/08/19 17:42 157/98 02/08/19 16:00 98.0 81 18 157/98 (117) 99 02/08/19 12:00 97.8 75 19 148/91 (110) 100 02/08/19 09:12 153/96 02/08/19 09:11 74 153/96 02/08/19 09:11 153/96 02/08/19 08:45 Nasal Cannula 2.0 Nasal Cannula 2.0 02/08/19 08:00 97.3 74 20 153/96 (115) 94 02/08/19 07:01 96 Nasal Cannula 2.0 28 02/08/19 07:01 78 18 Nasal Cannula 2.0 28 02/08/19 07:01 Nasal Cannula 2.0 28 02/08/19 04:00 98.0 85 17 142/94 (110) 100 02/08/19 00:00 98.3 79 18 133/90 (104) 98 02/07/19 20:29 89 161/110 02/07/19 20:29 161/110 02/07/19 20:12 Nasal Cannula 2.0 Nasal Cannula 2.0 02/07/19 20:06 98.9 89 16 161/110 (127) 96 02/07/19 19:36 97 Nasal Cannula 2.0 28 02/07/19 19:36 89 20 Nasal Cannula 2.0 28 02/07/19 19:36 Nasal Cannula 2.0 28 Intake and Output 02/07/19 02/08/19 19:00 07:00 Intake Total 1025 ml 240 ml Output Total 2250 ml 1100 ml Balance -1225 ml -860 ml Intake Oral 1025 ml 240 ml Output Urine Total 2250 ml 1100 ml # Bowel Movements 1 Current Medications Medications (Trade) Dose Ordered Sig/Celso Route PRN Reason Start Time Stop Time Status Last Admin Dose Admin Acetaminophen (Tylenol) 650 mg Q4H PRN ORAL Mild Pain/Temp > 100.5 02/06/19 15:00 03/06/19 14:59 Albuterol Sulfate (Proventil) 2.5 mg Q4H PRN HHN Shortness of Breath 02/06/19 15:00 02/11/19 14:59 Alprazolam (Xanax) 0.5 mg Q4H PRN ORAL For Anxiety 02/06/19 15:30 02/12/19 11:29 02/07/19 20:31 Clonidine HCl (Catapres Tab) 0.1 mg Q4H PRN ORAL sbp >160 02/06/19 15:00 03/07/19 14:59 02/07/19 20:29 Dextrose (Dextrose 50%) 25 ml Q30M PRN IV Hypoglycemia 02/06/19 15:15 03/06/19 17:14 Dextrose (Dextrose 50%) 50 ml Q30M PRN IV Hypoglycemia 02/06/19 15:15 03/06/19 17:14 Furosemide (Lasix) 40 mg DAILY IV 02/07/19 09:00 03/07/19 08:59 02/08/19 09:09 Heparin Sodium (Porcine) (Heparin 5000 units/ml) 5,000 units EVERY 12 HOURS SUBQ 02/06/19 21:00 03/06/19 20:59 02/08/19 09:12 Insulin Aspart (NovoLOG) BEFORE MEALS AND HS SUBQ 02/06/19 16:30 03/08/19 12:29 02/08/19 12:10 Lisinopril (Prinivil) 20 mg BID ORAL 02/06/19 18:00 03/07/19 22:44 02/08/19 17:42 Metformin HCl (Glucophage) 1,000 mg DAILY ORAL 02/07/19 09:00 03/07/19 08:59 02/08/19 09:11 Metoprolol Tartrate (Lopressor) 25 mg Q12HR ORAL 02/06/19 21:00 03/07/19 01:29 02/08/19 09:11 Nitroglycerin (Nitro-Bid) 1 inch BID TOPIC 02/06/19 18:00 03/06/19 21:59 02/08/19 17:42 Spironolactone (Aldactone) 25 mg DAILY ORAL 02/07/19 09:00 03/09/19 08:59 02/08/19 09:10 Zolpidem Tartrate (Ambien) 5 mg HSPRN PRN ORAL Insomnia 02/06/19 20:00 02/12/19 19:59 02/07/19 01:26 Suresh Arana MD Feb 08, 2019 18:40
[2019-02-08 20:01] VITALS: BP 152/102
[2019-02-08 20:34] LABS: BASOPHILS % (AUTO) 1.4 % (0.0-2.0); EOSINOPHILS % (AUTO) 5.3 % (0.0-3.0); HEMATOCRIT 39.1 % (42.0-52.0); HEMOGLOBIN 12.8 G/DL (14.2-18.0); LYMPHOCYTES % (AUTO) 47.1 % (20.0-45.0); MEAN CORPUSCULAR VOLUME 86 FL (80-99); NEUTROPHILS % (AUTO) 39.1 % (45.0-75.0); PLATELET COUNT 173 K/UL (150-450); RED BLOOD COUNT 4.54 M/UL (4.70-6.10); RED CELL DISTRIBUTION WIDTH 15.1 % (11.6-14.8); WHITE BLOOD COUNT 6.1 K/UL (4.8-10.8)
[2019-02-08] MEDS: ALPRAZolam 0.5mg tab ORAL PRN (20:39)
[2019-02-08 20:49] LABS: ANION GAP 8 mmol/L (5-15); BLOOD UREA NITROGEN 24 mg/dL (7-18); CALCIUM 9.4 MG/DL (8.5-10.1); CARBON DIOXIDE 32 MMOL/L (21-32); CHLORIDE 100 MMOL/L (98-107); CREATININE 1.1 MG/DL (0.55-1.30); SODIUM 140 MMOL/L (136-145)
[2019-02-09] VITALS (7 sets, daily range): BP systolic 137–160; BP diastolic 83–108
--- NOTE | 2019-02-09 03:45 | Progress Note ---
DATE: 02/07/2019 CARDIOLOGY PROGRESS NOTE Late entry for 02/07/2019. SUBJECTIVE: Blood pressure continues to be elevated. Medications have been adjusted. He is still short of breath. He notes no chest pain. OBJECTIVE: VITAL SIGNS: Blood pressure 150/95, pulse 86, and respirations 18. NECK: Elevated jugular venous pressure. LUNGS: Few rales. HEART: Regular rhythm and rate. Normal S1, S2 with a 1/6 systolic apical murmur. EXTREMITIES: Trace edema. IMPRESSION: 1. Acute on chronic systolic congestive heart failure. 2. Moderate protein-calorie malnutrition. 3. Accelerated hypertension. 4. Acute myocardial ischemia. PLAN: 1. Continue diuresis and up titration of anti-failure and antihypertensive drugs. 2. Long-term assessment of coronary flow reserve will follow and consideration for a defibrillator for secondary prevention should his ejection fraction not be reversible. Suresh Petty M.D. DR: MAKAYLA JOB#: [id number] CC:
--- NOTE | 2019-02-09 03:45 | Progress Note ---
DATE: 02/08/2019 CARDIOLOGY PROGRESS NOTE SUBJECTIVE: Condition unchanged. IV magnesium has been given over the past several days. The patient has no chest pain and somewhat less short of breath. OBJECTIVE: VITAL SIGNS: Blood pressure 142/94, pulse 75, respiratory rate 19. LUNGS: Few rales. CARDIAC: Regular rhythm and rate. Normal S1, S2 with a fourth heart sound. Jugular venous pressure elevated. EXTREMITIES: Trace edema. IMPRESSION AND PLAN: 1. Additional antihypertensive and anti-failure therapy indicated. 2. Continue diuresis. 3. We will recheck chemistry panel, magnesium level, and up titrate medications. 4. Ischemia workup in consideration for defibrillator to follow as noted previously. Suresh Petty M.D. DR: AMISH JOB#: [id number] CC:
[2019-02-09] MEDS: NovoLOG Insulin Flexpen SUBQ SCH ×4 (05:39→21:22)
[2019-02-09 06:27] LABS: BASOPHILS % (AUTO) 1.4 % (0.0-2.0); EOSINOPHILS % (AUTO) 4.4 % (0.0-3.0); HEMATOCRIT 35.5 % (42.0-52.0); HEMOGLOBIN 11.6 G/DL (14.2-18.0); MEAN CORPUSCULAR VOLUME 87 FL (80-99); MONOCYTES % (AUTO) 8.8 % (1.0-10.0); NEUTROPHILS % (AUTO) 35.4 % (45.0-75.0); PLATELET COUNT 141 K/UL (150-450); RED BLOOD COUNT 4.09 M/UL (4.70-6.10); RED CELL DISTRIBUTION WIDTH 15.1 % (11.6-14.8); WHITE BLOOD COUNT 5.6 K/UL (4.8-10.8)
[2019-02-09 06:36] LABS: ANION GAP 7 mmol/L (5-15); BLOOD UREA NITROGEN 26 mg/dL (7-18); CALCIUM 9.2 MG/DL (8.5-10.1); CARBON DIOXIDE 29 MMOL/L (21-32); CHLORIDE 102 MMOL/L (98-107); CREATININE 1.1 MG/DL (0.55-1.30); POTASSIUM 3.7 MMOL/L (3.5-5.1); SODIUM 138 MMOL/L (136-145)
--- NOTE | 2019-02-09 08:30 | General Progress Note ---
Assessment/Plan Assessment/Plan Possible acute non-STEMI, diabetes, hypertension, questionable COPD. PLAN cards clearance finalize RX dc planning impression, plan, and exam edited and reviewed in detail care discussed with RN Subjective Allergies: Coded Allergies: No Known Allergies (Unverified , 02/04/19) Subjective cards noted awaiting clearance Objective Last 24 Hour Vital Signs Date Time Temp Pulse Resp B/P (MAP) Pulse Ox O2 Delivery O2 Flow Rate FiO2 02/09/19 07:29 94 Nasal Cannula 2.0 28 02/09/19 07:29 75 18 Nasal Cannula 2.0 28 02/09/19 07:29 Nasal Cannula 2.0 28 02/09/19 04:09 97.7 74 17 152/99 (116) 97 02/09/19 00:00 97.9 75 18 137/87 (104) 95 02/08/19 20:31 83 152/102 02/08/19 20:13 Nasal Cannula 2.0 Nasal Cannula 2.0 02/08/19 20:01 97.4 83 17 152/102 (119) 96 02/08/19 19:46 82 18 Nasal Cannula 2.0 28 02/08/19 19:46 Nasal Cannula 2.0 28 02/08/19 19:46 95 Nasal Cannula 2.0 28 02/08/19 17:42 157/98 02/08/19 17:42 157/98 02/08/19 16:00 98.0 81 18 157/98 (117) 99 02/08/19 12:00 97.8 75 19 148/91 (110) 100 02/08/19 09:12 153/96 02/08/19 09:11 74 153/96 02/08/19 09:11 153/96 02/08/19 08:45 Nasal Cannula 2.0 Nasal Cannula 2.0 Intake and Output 02/08/19 02/09/19 19:00 07:00 Intake Total 400 ml Output Total 4000 ml 1100 ml Balance -3600 ml -1100 ml Intake Oral 400 ml Output Urine Total 4000 ml 1100 ml # Voids 6 # Bowel Movements 1 Laboratory Tests 02/08/19 20:20: White Blood Count 6.1, Red Blood Count 4.54L, Hemoglobin 12.8L, Hematocrit 39.1L , Mean Corpuscular Volume 86, Mean Corpuscular Hemoglobin 28.2, Mean Corpuscular Hemoglobin Concent 32.8, Red Cell Distribution Width 15.1H, Platelet Count 173, Mean Platelet Volume 7.2, Neutrophils (%) (Auto) 39.1L, Lymphocytes (%) (Auto) 47.1H, Monocytes (%) (Auto) 7.0, Eosinophils (%) (Auto) 5.3H, Basophils (%) (Auto) 1.4, Sodium Level 140, Potassium Level 4.0, Chloride Level 100, Carbon Dioxide Level 32, Anion Gap 8, Blood Urea Nitrogen 24H, Creatinine 1.1, Estimat Glomerular Filtration Rate > 60, Glucose Level 148H, Calcium Level 9.4 02/09/19 05:20: White Blood Count 5.6, Red Blood Count 4.09L, Hemoglobin 11.6L, Hematocrit 35.5L , Mean Corpuscular Volume 87, Mean Corpuscular Hemoglobin 28.3, Mean Corpuscular Hemoglobin Concent 32.6, Red Cell Distribution Width 15.1H, Platelet Count 141L, Mean Platelet Volume 7.6, Neutrophils (%) (Auto) 35.4L, Lymphocytes (%) (Auto) 50.0H, Monocytes (%) (Auto) 8.8, Eosinophils (%) (Auto) 4.4H, Basophils (%) (Auto) 1.4, Sodium Level 138, Potassium Level 3.7, Chloride Level 102, Carbon Dioxide Level 29, Anion Gap 7, Blood Urea Nitrogen 26H, Creatinine 1.1, Estimat Glomerular Filtration Rate > 60, Glucose Level 178H, Calcium Level 9.2, Magnesium Level 1.3L, Troponin I 0.036, Pro-B-Type Natriuretic Peptide 2067H Height (Feet): 5 Height (Inches): 8.00 Weight (Pounds): 176 Objective WDWN NAD clear breath sounds bilaterally without rhonchi or wheeze [id number] without MRG NABS nontender no HSM no CCE nonfocal Quan Huynh MD Feb 09, 2019 08:30
[2019-02-09] MEDS: Heparin 5000 units/ml inj SUBQ SCH ×3 (09:00→21:22)
[2019-02-09] MEDS: metFORMIN 500mg tab ORAL SCH (09:47)
[2019-02-09] MEDS: Spironolactone 25mg tab ORAL SCH (09:47)
[2019-02-09] MEDS: Imdur 30mg tab ORAL SCH (09:48)
[2019-02-09] MEDS: Metoprolol 25mg tab ORAL SCH ×2 (09:49→21:20)
[2019-02-09] MEDS: Nitroglycerin 2% oint pkt TOPIC SCH ×2 (09:50→19:04)
[2019-02-09] MEDS: Lisinopril 20mg tab ORAL SCH ×2 (09:50→19:04)
[2019-02-09] MEDS: ALPRAZolam 0.5mg tab ORAL PRN ×2 (13:45→21:19)
[2019-02-09] MEDS ORDERED: Heparin 5000 units/ml inj SUBQ SCH (21:00)
[2019-02-09] MEDS: Zolpidem 5mg tab ORAL PRN (21:21)
[2019-02-10] VITALS: BP 144/91
--- NOTE | 2019-02-10 01:30 | Progress Note ---
DATE: 02/09/2019 CARDIOLOGY PROGRESS NOTE SUBJECTIVE: The patient has no new complaints. Still short of breath with activities, but improved. OBJECTIVE: VITAL SIGNS: Blood pressure 150/99 earlier, now 151/85, heart rate 71, and respiratory rate 18. LUNGS: Clear. CARDIAC: Regular. Normal S1, S2 with a 1/6 systolic apical murmur. ABDOMEN: Soft. EXTREMITIES: Trace edema. LABORATORY DATA: White count 5.6 and hemoglobin 11.6. Pro-natriuretic peptide has decreased to 2000. Troponin negative. Magnesium 1.3. BUN 26 and creatinine 1.1. IMPRESSION: 1. Cardiomyopathy likely hypertensive. Rule out ischemic component. 2. Acute on chronic systolic and diastolic congestive heart failure. 3. Severe hypomagnesemia. 4. Hypertensive heart disease. PLAN: 1. Continue titration of anti-failure and anti-hypertensive regimen. 2. Myocardial perfusion scan to assess for coronary flow reserve. 3. IV magnesium replacement. 4. Discharge planning following results of myocardial perfusion scan with final medication regimen to be determined at that time. Suresh Petty M.D. DR: MAKAYLA JOB#: [id number] CC:
[2019-02-10 04:00] VITALS: BP 144/91
[2019-02-10] MEDS: ALPRAZolam 0.5mg tab ORAL PRN (05:56)
[2019-02-10] MEDS: NovoLOG Insulin Flexpen SUBQ SCH ×4 (06:01→21:20)
[2019-02-10] MEDS ORDERED: Lexiscan 0.4mg/5ml syringe IV PRN (06:09)
[2019-02-10 08:00] VITALS: BP 138/98
--- NOTE | 2019-02-10 08:05 | General Progress Note ---
Assessment/Plan Assessment: Possible acute non-STEMI, diabetes, hypertension, questionable COPD. PLAN cards clearance pending perfusion scan finalize RX dc planning impression, plan, and exam edited and reviewed in detail care discussed with RN Subjective Allergies: Coded Allergies: No Known Allergies (Unverified , 02/04/19) Subjective cards noted awaiting clearance and perfusion scan Objective Last 24 Hour Vital Signs Date Time Temp Pulse Resp B/P (MAP) Pulse Ox O2 Delivery O2 Flow Rate FiO2 02/10/19 07:08 Nasal Cannula 2.0 28 02/10/19 07:08 70 16 Nasal Cannula 2.0 28 02/10/19 07:08 96 Nasal Cannula 2.0 28 02/10/19 04:00 97.5 71 20 144/91 (108) 92 02/10/19 00:00 98.4 71 20 144/91 (108) 97 02/09/19 21:20 71 151/85 02/09/19 21:00 Nasal Cannula 2.0 Nasal Cannula 2.0 02/09/19 20:20 95 Room Air 21 02/09/19 20:20 Room Air 21 02/09/19 20:19 78 18 Room Air 21 02/09/19 20:00 98.5 71 18 151/83 (105) 97 02/09/19 19:04 131/84 02/09/19 19:04 131/84 02/09/19 16:00 98.0 80 18 150/99 (116) 98 02/09/19 12:00 97.2 85 18 156/108 (124) 97 02/09/19 09:50 160/96 02/09/19 09:50 160/96 02/09/19 09:49 77 160/96 02/09/19 09:49 77 160/96 02/09/19 09:48 160/96 02/09/19 09:21 77 160/96 (117) 02/09/19 09:00 Nasal Cannula 2.0 Room Air Intake and Output 02/09/19 02/10/19 19:00 07:00 Intake Total 480 ml Output Total 2425 ml Balance -1945 ml Intake Oral 480 ml Output Urine Total 2425 ml # Voids 4 Height (Feet): 5 Height (Inches): 8.00 Weight (Pounds): 181 Objective WDWN NAD clear breath sounds bilaterally without rhonchi or wheeze [id number] without MRG NABS nontender no HSM no CCE nonfocal Quan Huynh MD Feb 10, 2019 08:05
[2019-02-10] MEDS: metFORMIN 500mg tab ORAL SCH (10:00)
[2019-02-10] MEDS: Metoprolol 25mg tab ORAL SCH ×2 (10:06→21:19)
[2019-02-10] MEDS: Heparin 5000 units/ml inj SUBQ SCH ×2 (10:17→21:00)
[2019-02-10] MEDS: Spironolactone 25mg tab ORAL SCH (10:19)
[2019-02-10] MEDS: Imdur 30mg tab ORAL SCH (10:20)
[2019-02-10] MEDS: Lisinopril 20mg tab ORAL SCH ×2 (10:21→18:57)
[2019-02-10 12:00] VITALS: BP 137/94
--- NOTE | 2019-02-10 14:44 | Diagnostic Imaging Report ---
Indications: Chest pain Technique: Single day single isotope protocol utilized. Initially, resting images obtained using IV administration 10.2 millicuries 99M technetium Myoview. Subsequently, patient underwent lexiscan stress testing. See cardiology report for details. During Lexiscan infusion, IV administration 30.8 mCi 99 M technetium Myoview. SPECT and planar images obtained. SPECT images gated to 8 phases of the cardiac cycle were also obtained, and reformatted into cine images for evaluation of ejection fraction. Comparison: none Findings: Per cardiology report, patient experienced flushing, shortness of breath, stomach pain, and nausea. Per cardiology report, resting EKG demonstrates normal sinus rhythm with [address] depression in leads II, 3, aVF, V4 through V6. [address] depression noted during the infusion per cardiology report. Imaging demonstrates equivocal slight decreased perfusion in the inferior wall near the apex, which appears actually larger on the resting and on the post stress images and may in part be an artifact of diaphragmatic attenuation. No reversible perfusion defects are demonstrated. There is mild left ventricular dilatation noted. Calculated post stress ejection fraction 29%. There is global hypokinesis on the gated images Impression: Nondiagnostic clinical response to pharmacologic stress, per cardiology report Nondiagnostic electrocardiographic response to pharmacologic stress, per cardiology report Apparent fixed inferior wall perfusion defect, infarct versus artifact. No evidence of ischemia, at level of stress achieved Calculated post stress ejection fraction 29%. Note hypokinesis out of proportion to the perfusion abnormality, may indicate a component of nonischemic cardiomyopathy
[2019-02-10 16:14] VITALS: BP 138/90
[2019-02-10 20:00] VITALS: BP_SYST 140; BP_SYST 155; BP_DIAS 78; BP_DIAS 92
[2019-02-11] VITALS: BP 146/92
[2019-02-11] MEDS: Zolpidem 5mg tab ORAL PRN (01:16)
--- NOTE | 2019-02-11 03:00 | Progress Note ---
DATE: 02/10/2019 CARDIOLOGY PROGRESS NOTE SUBJECTIVE: The patient had a myocardial perfusion scan today. This study revealed severe left ventricular dysfunction with ejection fraction of less than 30%. There was dilatation of the ventricle. There is no evidence of reversible ischemia. Possible inferior scar versus artifact was noted. OBJECTIVE: VITAL SIGNS: Blood pressure 140/90, pulse 70, and respirations 18. LUNGS: Clear. CARDIAC: Regular. Normal S1 and S2 with a 1/6 systolic apical murmur. EXTREMITIES: No edema. IMPRESSION: 1. Hypertensive cardiomyopathy. 2. Dilated nonischemic cardiomyopathy. 3. Acute on chronic systolic congestive heart failure. 4. Hypomagnesemia. PLAN: 1. Maximize current anti-failure regimen, transition to oral therapy. 2. Outpatient followup. 3. Consider primary prevention with cardiac defibrillator in three months' time if no improvement in status. Suresh Petty M.D. DR: EMILY JOB#: [id number] CC:
[2019-02-11 04:00] VITALS: BP 128/76
[2019-02-11] MEDS: NovoLOG Insulin Flexpen SUBQ SCH ×4 (06:42→20:53)
[2019-02-11 08:00] VITALS: BP_SYST 146; BP_SYST 88; BP_DIAS 76; BP_DIAS 88
[2019-02-11] MEDS: Imdur 30mg tab ORAL SCH (09:52)
[2019-02-11] MEDS: Metoprolol 25mg tab ORAL SCH ×2 (09:55→20:52)
[2019-02-11] MEDS: metFORMIN 500mg tab ORAL SCH (09:57)
[2019-02-11] MEDS: Lisinopril 20mg tab ORAL SCH (09:59)
[2019-02-11] MEDS: Spironolactone 25mg tab ORAL SCH (10:01)
[2019-02-11] MEDS: Furosemide 40mg tab ORAL SCH (10:03)
[2019-02-11] MEDS: Heparin 5000 units/ml inj SUBQ SCH ×2 (10:06→20:52)
[2019-02-11 11:53] LABS: ANION GAP 8 mmol/L (5-15); BLOOD UREA NITROGEN 22 mg/dL (7-18); CALCIUM 9.2 MG/DL (8.5-10.1); CARBON DIOXIDE 27 MMOL/L (21-32); CHLORIDE 102 MMOL/L (98-107); CREATININE 1.1 MG/DL (0.55-1.30); POTASSIUM 4.5 MMOL/L (3.5-5.1); SODIUM 137 MMOL/L (136-145)
[2019-02-11 12:00] VITALS: BP 148/89
[2019-02-11] MEDS ORDERED: ALPRAZolam 0.5mg tab ORAL PRN (14:17)
--- NOTE | 2019-02-11 14:23 | Pulmonology Progress Note ---
Assessment/Plan Assessment/Plan Pulmonary Progress Note: HPI: Patient is a 58-year-old male who was admitted with CHF and elevated troponin. Cardiology following. The patient noted increasing shortness of breath. The patient also with elevated blood pressure. The patient was not felt to require transfer for acute angiogram. The patient does have history of COPD, stopped smoking approximately 1 month ago. Denies any history of CHF. The patient is seen and evaluated in the emergency room and admitted. The patient seen by Cardiology, no new complaints PAST MEDICAL HISTORY: Notable for COPD. No clear history of CAD, history of hypertension, history of diabetes. MEDICATIONS: Reviewed. ALLERGIES: Reviewed. SOCIAL HISTORY: Lives at home. Has longstanding history of smoking and disabled at present. PHYSICAL EXAMINATION: GENERAL: A well-developed male, comfortable at present. VITAL SIGNS NOTED. HEENT: Negative. NECK: Supple. LUNGS: With moderate breath sounds. CARDIAC: S1 and S2. Regular rate and rhythm. ABDOMEN: Soft and nontender. EXTREMITIES: No edema. NEUROLOGIC: Grossly nonfocal. LABORATORY DATA: Reviewed EKG noted and reviewed. IMPRESSION: Assessment: Possible acute non-STEMI, diabetes, hypertension, questionable COPD. PLAN cards clearance pending perfusion scan finalize RX dc planning impression, plan, and exam edited and reviewed in detail care discussed with RN Subjective ROS Limited/Unobtainable: No Allergies: Coded Allergies: No Known Allergies (Unverified , 02/04/19) Objective Last 24 Hour Vital Signs Date Time Temp Pulse Resp B/P (MAP) Pulse Ox O2 Delivery O2 Flow Rate FiO2 02/11/19 12:00 98.1 79 14 148/89 (108) 96 02/11/19 10:28 Nasal Cannula 1.5 Room Air 02/11/19 10:03 84 145/99 02/11/19 09:59 145/99 02/11/19 09:55 84 145/99 02/11/19 09:52 145/99 02/11/19 08:25 81 18 Nasal Cannula 2.0 28 02/11/19 08:25 96 Nasal Cannula 2.0 28 02/11/19 08:25 Nasal Cannula 2.0 28 02/11/19 08:00 97.5 70 16 146/88 (107) 94 02/11/19 08:00 97.5 70 16 88/76 (80) 94 02/11/19 04:00 97.7 73 18 128/76 (93) 95 02/11/19 00:00 97.7 71 19 146/92 (110) 96 02/10/19 21:19 79 140/92 02/10/19 21:00 Nasal Cannula 2.0 Nasal Cannula 2.0 02/10/19 20:00 78 18 Nasal Cannula 2.0 28 02/10/19 20:00 94 Nasal Cannula 2.0 28 02/10/19 20:00 99.0 79 18 140/92 (108) 96 02/10/19 20:00 Nasal Cannula 2.0 28 02/10/19 18:57 148/95 02/10/19 16:14 98.3 70 20 138/90 (106) 95 Intake and Output 02/10/19 02/11/19 19:00 07:00 Intake Total 720 ml Output Total 1525 ml 1100 ml Balance -805 ml -1100 ml Intake Oral 720 ml Output Urine Total 1525 ml 1100 ml # Voids 2 4 Laboratory Tests 02/11/19 10:50: Sodium Level 137, Potassium Level 4.5, Chloride Level 102, Carbon Dioxide Level 27, Anion Gap 8, Blood Urea Nitrogen 22H, Creatinine 1.1, Estimat Glomerular Filtration Rate > 60, Glucose Level 246H, Calcium Level 9.2, Magnesium Level 1.6L, Pro-B-Type Natriuretic Peptide 861H Current Medications Medications (Trade) Dose Ordered Sig/Celso Route PRN Reason Start Time Stop Time Status Last Admin Dose Admin Acetaminophen (Tylenol) 650 mg Q4H PRN ORAL Mild Pain/Temp > 100.5 02/06/19 15:00 03/06/19 14:59 Albuterol Sulfate (Proventil) 2.5 mg Q4H PRN HHN Shortness of Breath 02/06/19 15:00 02/11/19 14:59 Alprazolam (Xanax) 0.5 mg Q4H PRN ORAL For Anxiety 02/11/19 14:17 02/17/19 14:16 Amlodipine Besylate (Norvasc) 10 mg DAILY ORAL 02/10/19 09:00 03/12/19 08:59 02/11/19 10:03 Clonidine HCl (Catapres Tab) 0.1 mg Q4H PRN ORAL sbp >160 02/06/19 15:00 03/07/19 14:59 02/07/19 20:29 Dextrose (Dextrose 50%) 25 ml Q30M PRN IV Hypoglycemia 02/06/19 15:15 03/06/19 17:14 Dextrose (Dextrose 50%) 50 ml Q30M PRN IV Hypoglycemia 02/06/19 15:15 03/06/19 17:14 Furosemide (Lasix) 40 mg DAILY ORAL 02/11/19 09:00 03/13/19 08:59 02/11/19 10:03 Heparin Sodium (Porcine) (Heparin 5000 units/ml) 5,000 units EVERY 12 HOURS SUBQ 02/09/19 09:52 03/11/19 09:51 02/11/19 10:06 Insulin Aspart (NovoLOG) BEFORE MEALS AND HS SUBQ 02/06/19 16:30 03/08/19 12:29 02/11/19 12:51 Isosorbide Mononitrate (Imdur) 60 mg DAILY ORAL 02/11/19 09:00 03/13/19 08:59 02/11/19 09:52 Lisinopril (Prinivil) 40 mg DAILY ORAL 02/11/19 09:00 03/13/19 08:59 02/11/19 09:59 Metformin HCl (Glucophage) 1,000 mg DAILY ORAL 02/07/19 09:00 03/07/19 08:59 02/11/19 09:57 Metoprolol Tartrate (Lopressor) 50 mg Q12HR ORAL 02/09/19 09:00 03/11/19 08:59 02/11/19 09:55 Regadenoson (Lexiscan) 0.4 mg ONCE PRN IV cardiology 02/10/19 06:09 02/11/19 23:59 Spironolactone (Aldactone) 25 mg DAILY ORAL 02/07/19 09:00 03/09/19 08:59 02/11/19 10:01 Zolpidem Tartrate (Ambien) 5 mg HSPRN PRN ORAL Insomnia 02/11/19 21:00 02/17/19 20:59 Suresh Arana MD Feb 11, 2019 14:23
[2019-02-11 16:00] VITALS: BP 132/78
[2019-02-11 20:00] VITALS: BP 141/103
[2019-02-11] MEDS ORDERED: Zolpidem 5mg tab ORAL PRN (21:00)
[2019-02-12 00:16] VITALS: BP 144/83
--- NOTE | 2019-02-12 02:00 | Progress Note ---
DATE: 02/11/2019 CARDIOLOGY PROGRESS NOTE SUBJECTIVE: The patient has less shortness of breath. No chest pain. Myocardial perfusion scan was reviewed and discussed yesterday revealing severe systolic dysfunction and a nonischemic cardiomyopathy. OBJECTIVE: VITAL SIGNS: Blood pressure 145/99, pulse 84, and respirations 18. LUNGS: Few rales, but predominantly clear. CARDIAC: Regular rhythm and rate. Normal S1, S2 with a 1/6 systolic apical murmur. ABDOMEN: Soft. EXTREMITIES: No edema. IMPRESSION: 1. High blood pressure control remains suboptimal although improved. 2. Nonischemic cardiomyopathy. 3. Acute on chronic systolic congestive heart failure. 4. Acute myocardial ischemia. 5. Chronic obstructive pulmonary disease with exacerbation. PLAN: 1. Consideration for cardiac defibrillator in the future for primary prevention if no improvement in ejection fraction. 2. Respiratory hygiene. 3. Bronchodilators. 4. Maintenance diuretic dose. 5. Followup laboratory studies. 6. He will need additional antihypertensives. We will start doxazosin in lieu of tamsulosin. Suresh Petty M.D. DR: MAKAYLA JOB#: [id number] CC:
[2019-02-12 04:00] VITALS: BP 126/75
[2019-02-12] MEDS: NovoLOG Insulin Flexpen SUBQ SCH (05:44)
[2019-02-12 08:00] VITALS: BP 129/92
[2019-02-12] MEDS: Furosemide 40mg tab ORAL SCH (08:27)
[2019-02-12] MEDS: Imdur 30mg tab ORAL SCH (08:27)
[2019-02-12] MEDS: Lisinopril 20mg tab ORAL SCH (08:28)
[2019-02-12] MEDS: metFORMIN 500mg tab ORAL SCH (08:28)
[2019-02-12] MEDS: Spironolactone 25mg tab ORAL SCH (08:28)
[2019-02-12 08:29] VITALS: BP 129/92
[2019-02-12] MEDS: Metoprolol 25mg tab ORAL SCH (08:29)
[2019-02-12] MEDS: Heparin 5000 units/ml inj SUBQ SCH (08:30)
--- NOTE | 2019-02-12 08:39 | General Progress Note ---
Assessment/Plan Assessment: Possible acute non-STEMI, diabetes, hypertension, questionable COPD. PLAN cards clearance to home reviewed perfusion scan dc to home patient to follow up with cardiology for possible AICD impression, plan, and exam edited and reviewed in detail care discussed with RN Subjective Allergies: Coded Allergies: No Known Allergies (Unverified , 02/04/19) Subjective cards noted noted results Objective Last 24 Hour Vital Signs Date Time Temp Pulse Resp B/P (MAP) Pulse Ox O2 Delivery O2 Flow Rate FiO2 02/12/19 08:29 73 129/92 02/12/19 08:28 129/92 02/12/19 08:28 73 129/92 02/12/19 08:27 129/92 02/12/19 08:00 98.0 73 20 129/92 (104) 96 02/12/19 07:53 Room Air 21 02/12/19 07:53 95 Room Air 21 02/12/19 04:00 97.8 79 18 126/75 (92) 96 02/12/19 00:16 97.7 70 18 144/83 (103) 98 02/11/19 20:52 90 18 Room Air 21 02/11/19 20:52 78 141/103 02/11/19 20:51 98 Room Air 21 02/11/19 20:51 Room Air 21 02/11/19 20:16 Room Air Room Air 02/11/19 20:00 97.5 78 20 141/103 (116) 98 02/11/19 16:00 98.0 71 20 132/78 (96) 96 02/11/19 12:00 98.1 79 14 148/89 (108) 96 02/11/19 10:28 Nasal Cannula 1.5 Room Air 02/11/19 10:03 84 145/99 02/11/19 09:59 145/99 02/11/19 09:55 84 145/99 02/11/19 09:52 145/99 Intake and Output 02/11/19 02/12/19 19:00 07:00 Intake Total 580 ml Balance 580 ml Intake Oral 580 ml # Voids 3 2 Laboratory Tests 02/11/19 10:50: Sodium Level 137, Potassium Level 4.5, Chloride Level 102, Carbon Dioxide Level 27, Anion Gap 8, Blood Urea Nitrogen 22H, Creatinine 1.1, Estimat Glomerular Filtration Rate > 60, Glucose Level 246H, Calcium Level 9.2, Magnesium Level 1.6L, Pro-B-Type Natriuretic Peptide 861H Height (Feet): 5 Height (Inches): 8.00 Weight (Pounds): 172 Objective WDWN NAD clear breath sounds bilaterally without rhonchi or wheeze [id number] without MRG NABS nontender no HSM no CCE nonfocal Quan Huynh MD Feb 12, 2019 08:39
[2019-02-12] MEDS ORDERED: AMLODIPINE BESY10 MG ORAL (09:56)
[2019-02-12] MEDS ORDERED: DOXAZOSIN MESYLA1 MG ORAL (09:57)
[2019-02-12] MEDS ORDERED: FUROSEMIDE40 MG ORAL (09:58)
[2019-02-12] MEDS ORDERED: PRINIVIL20 MG ORAL (09:59)
[2019-02-12] MEDS ORDERED: METOPROLOL TART50 M1 ORAL (10:00)
[2019-02-12] MEDS ORDERED: SPIRONOLACTONE25 MG ORAL (10:01)
[2019-02-12] MEDS ORDERED: Doxazosin 1mg Tab ORAL SCH ×2 (21:00)
--- NOTE | 2019-02-13 00:45 | Progress Note ---
CARDIOLOGY PROGRESS NOTE DATE: 02/12/2019 SUBJECTIVE: The patient's blood pressure control has improved, shortness of breath resolved. Monitored rhythm is sinus with no sustained arrhythmias. OBJECTIVE: VITAL SIGNS: Blood pressure 129/92, pulse 73, and respirations 20. LUNGS: Clear. CARDIAC: Regular. Normal S1, S2. A 1/6 systolic apical murmur. ABDOMEN: Soft. EXTREMITIES: No edema. IMPRESSION: 1. Nonischemic cardiomyopathy. 2. Acute on chronic systolic congestive heart failure, now clinically compensated. 3. Malignant range hypertension, now mostly controlled. Increased risk of sudden cardiac in this clinical setting warrant evaluation within three months for cardiac defibrillator if condition does not improve. He will follow up as an outpatient. Can discharge home on current cardiovascular medication regimen. Salt restriction and fluid restriction discussed. Suresh Petty M.D. DR: BROCK JOB#: [id number] CC:
--- NOTE | 2019-02-13 14:59 | Discharge Summary ---
Discharge Summary Discharge Summary _ DATE OF ADMISSION: 02/04/2019 DATE OF DISCHARGE: 02/12/2019 DISCHARGED BY: Dr. Christel Huynh INTEGRATION PROJECT MANAGER: Dr. Suresh Petty BRIEF HOSPITAL COURSE: Patient is a 58-year-old male, who was admitted through the emergency room due to elevated troponin. The patient was noted to have increased shortness of breath and elevated blood pressure. He has history of COPD and stopped smoking approximately just a month prior. He denied history of CHF. On evaluation at the ED, pressure was 160/100, pulse rate 101, he was saturating 94% on 4 L nasal cannula. Blood work did not show any leukocytosis, hemoglobin and hematocrit were stable. Electrolytes were normal. Kidney function was normal. Troponin was elevated to 0.074, proBNP was 2585. While at the emergency room, patient was hypertensive and had CHF findings on chest x- ray. He was given Lasix. Initial EKG showed LVH with no acute injury. Due to elevated troponin, he was given aspirin and metoprolol. The patient improved initially, IV hydration was stopped. The patient worsened after repeat EKG. Unable to perform CT angiogram. He was then given Lovenox. He was given nitrates. He was admitted to ICU. Quality Control Lead was consulted. He was given intravenous diuretic therapy. He was given beta-clemente. On monitor, patient was in sinus rhythm with frequent atrial ectopy and occasional premature ventricular contractions. Echocardiogram per neurosurgery physician, was notable for moderately decreased ejection fraction of less than 30% with mild valvular regurgitation. He was given electrolyte replacement. He was given CHANO inhibitor, Aldactone was added. He continued to have elevated blood pressure. Antihypertensive regimen and anti -failure regimen was optimized. He was given bronchodilator therapy. Patient had myocardial perfusion scan. Study revealed severe left ventricular dysfunction with ejection fraction of less than 30%. There was dilatation of the ventricle. There was no evidence of reversible ischemia. Possible inferior scar versus artifact was noted. Patient needed additional antihypertensives. He was started on doxazosin patient had malignant range hypertension. Patient has increased risk of sudden cardiac and would warrant evaluation within 3 months for cardiac defibrillator if condition does not improve. He was advised to continue current cardiovascular medication regiment, with salt restriction and fluid restriction. Patient was discharged home. FINAL DIAGNOSES: Nonischemic cardiomyopathy Acute on chronic systolic congestive heart failure Acute myocardial ischemia Malignant range hypertension Diabetes mellitus Hypertension COPD with exacerbation Severe hypomagnesemia Hypertensive heart disease DISPOSITION: Patient was discharged home. DISCHARGE MEDICATIONS: Refer to Discharge Medication List. DISCHARGE INSTRUCTIONS: Follow-up in a week. I have been assigned to complete a discharge summary on this account, I was not involved with the patient's management. Cheri Langley NP Feb 13, 2019 14:59
--- NOTE | 2019-02-16 12:11 | Cardiology Report ---
APPROVED REPORT EKG Measurement Heart [id number] Normal sinus rhythm Left ventricular hypertrophy with repolarization abnormality Non-specific ST-T abn Abnormal ECG
--- NOTE | 2019-02-16 12:12 | Cardiology Report ---
APPROVED REPORT EKG Measurement Heart [id number] PA [id number] Normal sinus rhythm Left ventricular hypertrophy with repolarization abnormality Abnormal ECG
== END 2019-02-12 11:07 | disposition home or self-care (01) | DRG 194 ==
LOC: EDBD 12:32 → EMR 13:00 → EDBEDREQSVC 14:00 → EDBEDREQ 14:00 → ICU 14:18 → EDBEDREQ 14:57 → 2W 02-06 02:05 → 4E 02-06 14:19
DX: I11.0 Hypertensive heart disease with heart failure (principal); I21.4 Non-ST elevation (NSTEMI) myocardial infarction; E11.65 Type 2 diabetes mellitus with hyperglycemia; E44.1 Mild protein-calorie malnutrition; I42.8 Other cardiomyopathies; I51.3 Intracardiac thrombosis, not elsewhere classified; E83.42 Hypomagnesemia; J44.1 Chronic obstructive pulmonary disease with (acute) exacerbation; I50.43 Acute on chronic combined systolic (congestive) and diastolic (congestive) heart failure; I49.1 Atrial premature depolarization; Z68.25 Body mass index [BMI] 25.0-25.9, adult; Z87.891 Personal history of nicotine dependence; I49.3 Ventricular premature depolarization
CPT/HCPCS: 36415; 71045; 78452; 80048; 80053; 80061; 81003; 82550; 82962; 83735; 83880; 84443; 84484; 85007; 85025; 85610; 85730; 87081; 93005; 93017; 93306; 94640; 94664; 94760; 96361; 96372; 96374; 96375; 99291; J1815; J2785